=== PATIENT | male | born 1960 ===

== ENCOUNTER 2021-10-09 16:37 | Emergency (ER) | payer OTHER ==
[~2021-10-09] VITALS: Ht 172.7 cm; Wt 77.3 kg
[2021-10-09] MEDS ORDERED: ASPIRIN 81 MG CHEWABLE TABLET PO ONE (18:15)
[2021-10-09] MEDS ORDERED: NITROGLYCERIN 2% (1 GM=INCH) PACKET TP ONE (18:15)
[2021-10-09 18:24] LABS: BASOPHILS % (AUTO) 0.5 % (0.0-2.0); EOSINOPHILS % (AUTO) 1.3 % (1.0-6.0); HEMATOCRIT 41.8 % (41-53); HEMOGLOBIN 14.4 g/dL (13.5-17.5); LYMPHOCYTES # (AUTO) 2.3 K/uL (1.0-4.8); LYMPHOCYTES % (AUTO) 34.9 % (22.0-44.0); MEAN CORPUSCULAR HEMOGLOBIN 30.1 pg (26.0-34.0); MEAN CORPUSCULAR HGB CONC 34.4 G/dL (31.0-37.0); MEAN CORPUSCULAR VOLUME 87 fL (80-100); MONOCYTES # (AUTO) 0.6 K/uL (0.1-1.0); MONOCYTES % (AUTO) 8.9 % (2.0-9.0); NEUTROPHILS # (AUTO) 3.6 K/uL (1.8-7.7); NEUTROPHILS % (AUTO) 54.4 % (40.0-70.0); PLATELET COUNT (AUTO) 296 K/uL (150-450); RED BLOOD CELL COUNT(AUTO) 4.78 MIL/uL (4.50-5.90); RED CELL DISTRIBUTION WIDTH 13.2 % (11.5-14.5)
[2021-10-09 18:31] LABS: COVID AG,FIA SOURCE NASOPHARYNGEAL
[2021-10-09 18:35] LABS: ANION GAP 4 mmol/L (8-16); CALCIUM, TOTAL 9.4 mg/dL (8.8-10.5); CARBON DIOXIDE 31 mmol/L (22-29); CHLORIDE 101 mmol/L (98-107); GLOMERULAR FILTR. RATE CALC > 60 mL/min (>60); GLUCOSE,RANDOM 273 mg/dL (70-110); POTASSIUM 4.6 mmol/L (3.5-5.1); SODIUM SERUM 136 mmol/L (136-145); UREA NITROGEN, BLOOD 13 mg/dL (7-18)
[2021-10-09 18:40] LABS: ALANINE AMINOTRANSFERASE 21 U/L (12-78); ALBUMIN 3.7 g/dL (3.4-5.0); ALKALINE PHOSPHATASE 143 U/L (46-116); ASPARTATE AMINOTRANSFERASE 13 U/L (15-37); BILIRUBIN,TOTAL 0.3 mg/dL (0.1-1.0); LIPASE 122 U/L (73-393); TOTAL PROTEIN, SERUM 7.6 g/dL (6.4-8.2)
[2021-10-09] MEDS ORDERED: MORPHINE SULFATE 4 MG/ML SYRINGE IVP ONE (19:15)
[2021-10-09] MEDS ORDERED: OMEP20 PO (19:33)
[2021-10-09] MEDS ORDERED: ATOR40TA28 PO (19:33)
[2021-10-09] MEDS ORDERED: LIDO35.44 TP (19:33)
[2021-10-09] MEDS ORDERED: INSLAN SQ (19:33)
[2021-10-09] MEDS ORDERED: AUD NEB (19:33)
[2021-10-09] MEDS ORDERED: GABA-1181 PO (19:33)
[2021-10-09] MEDS ORDERED: NITR0.4T52 SL (19:33)
[2021-10-09] MEDS ORDERED: DOCU-270 PO (19:33)
[2021-10-09] MEDS ORDERED: GUAI118L41 PO (19:33)
[2021-10-09] MEDS ORDERED: METO25XL PO (19:33)
[2021-10-09] MEDS ORDERED: ACET-2247 PO (19:33)
[2021-10-09] MEDS ORDERED: ASPI-1450 PO (19:33)
[2021-10-09] MEDS ORDERED: ALBU8HFA IH (19:33)
[2021-10-09 19:50] LABS: GLUCOSE,POINT OF CARE 241 MG/DL (70-110)
[2021-10-09] MEDS ORDERED: LORazepam 1 MG TABLET PO ONE (21:00)
[2021-10-09] MEDS ORDERED: LORazepam 2 MG/ML VIAL IVP ONE (21:00)
[2021-10-10] VITALS: BP 145/86
== END 2021-10-10 00:14 | disposition home or self-care (01) ==
LOC: EMS 16:37
DX: R07.9 Chest pain, unspecified (principal); R55 Syncope and collapse; F17.210 Nicotine dependence, cigarettes, uncomplicated; E11.9 Type 2 diabetes mellitus without complications; Z86.73 Personal history of transient ischemic attack (TIA), and cerebral infarction without residual deficits; Z20.822 Contact with and (suspected) exposure to COVID-19
CPT/HCPCS: 36415; 70450; 71045; 80053; 82962; 83690; 84484; 85025; 87426; 93005; 96374; 96375; 99285; J2060; J2270